=== PATIENT | female | born 1940 | race Hispanic/Latino ===

== ENCOUNTER 2017-04-10 11:25 | Day surgery (SDC) | payer OTHER ==
--- NOTE | 2017-04-04 10:34 | HP ---
HISTORY OF PRESENT ILLNESS: Emilie Price is a 76-year-old female dialyzes in [facility] am at 0745 Sunday, , and Sunday. She is followed by Dr. Maya. She had a hemodialysis cat heter placed on 05/2016. She needs more prominent access. Vein mapping obtained. Contrast venograp hy at the interventional Center reveals patent veins, but size is not known. Her veins seem to be grijalva perior in her right arm. Plan is for right arm primary fistula as an outpatient under regional anest hesia and sedation, IV access, blood draws can be obtained through her from her dialysis catheter. R isks and benefits explained. She consents. Patient hospitalized recently [facility] for dyspnea and had been on dialysis at that time for about three months. PAST MEDICAL HISTORY: End-stage renal disease on hemodialysis, hypertension, and dyslipidemia. ALLERGIES: None. PAST SURGICAL HISTORY: Right IJ cuffed tunnel dialysis catheter for end-stage renal disease. MEDICATIONS: Metoprolol 25 mg twice a day, simvastatin 10 mg daily, isosorbide 20 mg daily, Calcarb 600 mg t.i.d., amlodipine 5 mg a day, Ecotrin 81 mg a day, Ranjana-Jt once a day, and Protonix 40 mg a day. REVIEW OF SYSTEMS: Ten -point noncontributory. PHYSICAL EXAMINATION: VITAL SIGNS: 196/69, 69, 97.5 degrees. HEENT: Unremarkable. LUNGS: Clear to auscultation. CARDIAC: Regular rate and rhythm without murmur or gallop. ABDOMEN: Soft, nontender. EXTREMITIES: Unremarkable, hemodialysis catheter IJ present. Palpable radial pulses bilaterally. B lita veins are right antecubital than the left visibly. ASSESSMENT AND PLAN: End-stage renal disease and need of more permanent dialysis access. We will pl an placement of a primary fistula right arm regional anesthesia TIVA, IV access, blood draws through her dialysis catheter. Vein mapping ultrasound Doppler, venography left upper extremity 10/2016 from [facility] reveals patent veins, but sizes not reported. Left upper extremity ve ins patent, other veins not assessed. Plan right arm primary fistula as the veins visibly prudently better and are superior on the right than left. Patient understands the risks and benefits, infectio n, bleeding, reoperation, ischemic hand, possible revision, surgical thrombosis, possible new placeme nt and consents.
[~2017-04-10 11:25] MED LIST: Bupivacaine HCl 0.5%/Epinephrine 1:200,000/PF 30 ml Vial ONE; Bupivacaine PF 0.5% 30 ML VIAL ONE
[2017-04-10 12:08] LABS: #Eosinphils 0.2 thou/uL (0.0-0.7); #Lymphocytes 1.5 thou/uL (1.20-3.40); #Monocytes 0.4 thou/uL (0.11-0.59); #Neutrophils 3.7 thou/uL (1.40-6.50); %Basophils 0.1 % (0.0-1.0); %Eosinophils 4.2 % (0.0-10.0); %Neutrophils 63.8 % (42.0-75.0); Hemoglobin 11.2 g/dL (12.0-16.0); Mean Corpuscular HGB CONC 33.4 g/dL (32.0-36.0); Mean Platelet Volume 9.7 fL (7.4-10.4); Platelet Count 119 thou/uL (130-400); Red Blood Cell (RBC) Count 3.28 mill/uL (4.20-5.40); White Blood Cell (WBC) Count 5.8 thou/uL (4.8-10.8)
[2017-04-10] MEDS ORDERED: CEFAZOLIN/Water 2 GM/20 ML SYRINGE ONE (12:12)
[2017-04-10] MEDS ORDERED: Fentanyl 100 MCG/2 ML VIAL ONE ×2 (12:18→12:28)
[2017-04-10 12:24] LABS: Anion Gap 13 mmol/L (10-20); BUN (Urea Nitrogen) 30 mg/dL (9.8-20.1); Calc. Creatinine Clearance 0 mL/min (70-130); Calcium 9.7 mg/dL (7.8-10.44); Carbon Dioxide 30 mmol/L (23-31); Chloride 103 mmol/L (98-107); Estimated GFR-MDRD 7; Glucose 101 mg/dL (83-110); Potassium 4.1 mmol/L (3.5-5.1); Sodium 142 mmol/L (136-145)
[2017-04-10] MEDS ORDERED: Lidocaine 1% w/Epinephrine 1:200K 30 ML VIAL ONE (12:26)
[2017-04-10] MEDS ORDERED: Heparin 5,000 UNITS/ML VIAL ONE (12:26)
[2017-04-10] MEDS ORDERED: Bupivacaine 0.5% 10 ML VIAL ONE (12:26)
[2017-04-10] MEDS ORDERED: Protamine Sulfate 50 MG/5 ML VIAL ONE (12:26)
[2017-04-10] MEDS ORDERED: Midazolam HCl 2 mg/2 ml Vial ONE (12:28)
[2017-04-10] MEDS ORDERED: Propofol 500 MG/50 ML VIAL ONE (12:43)
--- NOTE | 2017-04-10 16:05 | EKG ---
Test Reason : PREOP Blood Pressure : / mmHG Vent. Rate : 075 BPM Atrial Rate : 075 BPM P-R Int : 128 ms QRS Dur : 078 ms QT Int : 424 ms P-R-T Axes : 077 030 048 degrees QTc Int : 473 ms Normal sinus rhythm Inferior infarct , age undetermined cannot be excluded Abnormal ECG Confirmed by PEDRO LEE ([id number]) on 04/10/2017 4:05:21 PM Referred By: CHIP Confirmed By:PEDRO LEE
[2017-04-10] MEDS ORDERED: PHENYLEPHRINE-NS 100 MCG/ML 10 ML SYRINGE ONE (16:23)
[2017-04-10] MEDS ORDERED: Heparin 10,000 UNITS/ 10 ML VIAL ONE ×2 (16:23→16:44)
[2017-04-10] MEDS ORDERED: Ondansetron HCl/PF 4 MG/2 ML Vial ONE (16:23)
--- NOTE | 2017-04-10 17:46 | OP ---
DATE OF PROCEDURE: 04/10/2017 PREOPERATIVE DIAGNOSIS: End-stage renal disease. POSTOPERATIVE DIAGNOSIS: End-stage renal disease. PROCEDURES PERFORMED: Right arm primary AV fistula, perforating branch antecubital vein to the proxi mal radial artery, outflow cephalic vein only, retrograde antecubital vein preserved, 3.5 mm coronary dilator passed unrestricted out the cephalic vein outflow. Note, patient had preoperative venous ma pping at [facility] contrast venography that did not provide good information, but did verify patent central circulation. Clinically, her right cephalic vein was larger than her left, and she was right handed. SURGEON: Dr. Giacomo Jesus. ANESTHESIA: Regional TIVA. PROCEDURE IN DETAIL: The patient was taken to the operating room where under regional anesthesia and intravenous sedation, right upper extremity was prepared with ChloraPrep, draped in routine fashion. A longitudinal incision was made between the proximal radial artery and antecubital vein carried do wn through the skin and subcutaneous tissue and the antecubital vein dissected free, was of good ariana melany. Outflow cephalic vein was of excellent caliber. Perforating branch antecubital vein was larger and dissected free and branches divided between 4-0 silk ties and clips, mobilized, and spatulated o nae a branch point, interrogated with coronary dilators. The patient given 6000 units of heparin int ravenously. Coronary dilators from a 2 mm to 3.5 mm passed unobstructed as far as they could reach i n the cephalic vein. Cephalic vein was dissected free distally just above the antecubital fossa and there was no branch points identified. Proximal radial artery identified, dissected free. The arter y was small and had a smaller than usual branch that probably was not the ulnar artery. The patient probably had a high bifurcation of the radial artery. After adequate heparin circulation, proximal r adial artery and branches clamped with atraumatic vascular clamps and longitudinal arteriotomy made s harply and elongated sharply and end perforating branch of the antecubital vein to the side proximal radial artery anastomosis completed with continuous suture of 6-0 Prolene. The patient was given 25 mg of protamine intravenously. Doppler interrogation of the cephalic vein outflow revealed a good si gnal. Good hemostasis noted and obtained with 6-0 Prolene, Surgicel applied with 25 mg of protamine administered by Anesthesia intravenously. Good hemostasis noted. Subcutaneous tissues approximated with 3-0 Monocryl, skin with subdermal 4-0 Monocryl and DermaGlue applied.
== END 2017-04-10 17:08 | disposition home or self-care (01) ==
LOC: SDC 11:25
PROVIDERS: ATTEND Specialist
PROC: 031B0ZF Bypass Right Radial Artery to Lower Arm Vein, Open Approach (ICD-10-PCS; principal; 2017-04-10)
DX: I12.0 Hypertensive chronic kidney disease with stage 5 chronic kidney disease or end stage renal disease (principal); N18.6 End stage renal disease; E78.5 Hyperlipidemia, unspecified; Z99.2 Dependence on renal dialysis; Z79.82 Long term (current) use of aspirin; Z79.899 Other long term (current) drug therapy; Z98.51 Tubal ligation status; Z98.890 Other specified postprocedural states
CPT/HCPCS: 36415; 80048; 85025; 93005; 93010; J0670; J1644; J2250; J2405; J2704; J2720; J3010; J3490; S0020

== ENCOUNTER 2017-07-19 19:30 | Emergency (ER) | payer OTHER ==
[2017-07-19 20:10] LABS: Bilirubin Negative (Negative); Blood, Urine Small (Negative); Clarity CLOUDY (Clear); Glucose, Urine (Dipstick) Negative (Negative); Leukocyte Small (Negative); Nitrite Negative (Negative); Protein, Urine (Dipstick) 300 mg/dL (Neg-Trace); Specific Gravity, Urine 1.011 (1.002-1.036); Urobilinogen 0.2 mg/dL (0.2-1.0); pH, Urine 7.5 (5.0-9.0)
[2017-07-19 20:13] LABS: Bacteria/HPF None Seen HPF (None Seen)
[2017-07-19 20:15] LABS: Pathc Cast-AUWi Flag 3.34 (0-2.49)
[2017-07-19 20:16] LABS: #Eosinphils 0.3 thou/uL (0.0-0.7); #Lymphocytes 1.3 thou/uL (1.20-3.40); #Monocytes 0.4 thou/uL (0.11-0.59); #Neutrophils 4.1 thou/uL (1.40-6.50); %Basophils 0.3 % (0.0-1.0); %Eosinophils 5.2 % (0.0-10.0); %Lymphocytes 21.1 % (21.0-51.0); %Monocytes 7.1 % (0.0-10.0); %Neutrophils 66.3 % (42.0-75.0); Mean Corpuscular HGB CONC 33.8 g/dL (32.0-36.0); Mean Corpuscular Hemoglobin 34.9 pg (27.0-31.0); Mean Platelet Volume 8.4 fL (7.4-10.4); Platelet Count 192 thou/uL (130-400); RBC Distribution Width 12.3 % (11.5-14.5); Red Blood Cell (RBC) Count 2.86 mill/uL (4.20-5.40); White Blood Cell (WBC) Count 6.2 thou/uL (4.8-10.8)
[2017-07-19 20:23] LABS: Hyaline Casts/LPF 0-3 HYALINE CAST LPF (0-3 Hyaline)
[2017-07-19 20:24] LABS: Other Casts/LPF 0-3 COARSE GRAN LPF (0-3 Hyaline); Renal Epithelial None Seen HPF (0-3); Transitional Epithelial NONE SEEN HPF (0-3)
[2017-07-19 20:42] LABS: ALT (SGPT) 23 U/L (8-55); AST (SGOT) 18 U/L (5-34); Albumin 3.7 g/dL (3.4-4.8); Alkaline Phosphatase 187 U/L (40-150); Anion Gap 14 mmol/L (10-20); BUN (Urea Nitrogen) 21 mg/dL (9.8-20.1); Bilirubin, Total 0.4 mg/dL (0.2-1.2); Calc. Creatinine Clearance 0 mL/min (70-130); Calcium 9.7 mg/dL (7.8-10.44); Carbon Dioxide 30 mmol/L (23-31); Chloride 98 mmol/L (98-107); Estimated GFR-MDRD 8; Globulin 3.8 g/dL (2.4-3.5); Glucose 100 mg/dL (83-110); Lipase 25 U/L (8-78); Potassium 4.7 mmol/L (3.5-5.1); Protein, Total 7.5 g/dL (6.0-8.3); Sodium 137 mmol/L (136-145)
== END 2017-07-19 20:58 | disposition home or self-care (01) ==
LOC: ERS 19:30
DX: N39.0 Urinary tract infection, site not specified (principal); K21.9 Gastro-esophageal reflux disease without esophagitis; I10 Essential (primary) hypertension; Z79.82 Long term (current) use of aspirin; Z79.891 Long term (current) use of opiate analgesic; Z79.899 Other long term (current) drug therapy
CPT/HCPCS: 36415; 80053; 81003; 81015; 83690; 85025; 99284

== ENCOUNTER 2018-04-02 15:52 | Outpatient (CLI) | payer OTHER ==
--- NOTE | 2018-04-02 16:35 | RAD ---
TWO VIEWS LUMBAR SPINE: 04/02/18 HISTORY: Pain. COMPARISON: None. FINDINGS: Diffuse bone demineralization. Chronic moderate compression fracture at L1. Preservation of vertebral body heights from L3 through L5. Sclerosis on the superior end plate of L2 which may represent a mil d compression deformity. Limited evaluation of the distal thoracic spine. IMPRESSION: Compression deformity at L1 and L2. POS: [facility]
== END 2018-04-02 15:53 | disposition home or self-care (01) ==
LOC: TBSIIMAG 15:52
PROVIDERS: ATTEND Neurological Surgery
DX: M54.5 Low back pain (principal); M43.9 Deforming dorsopathy, unspecified
CPT/HCPCS: 72100

== ENCOUNTER 2018-04-23 14:08 | Outpatient (CLI) | payer OTHER ==
--- NOTE | 2018-04-23 15:32 | RAD ---
LUMBAR SPINE 2 VIEWS: HISTORY: M54.5, lumbar pain. COMPARISON: Radiograph 04/02/2018. FINDINGS: The compression fracture at L1 has some mildly progressive greater than 60% anterior height loss. Th ere appears to be a possibly some low-grade retropulsion. L2 superior end plate compression fracture is similar. No new acute superimposed fracture or malalignment. Dense calcifications of the aorta. IMPRESSION: 1. Progressive height loss of L1 vertebral body with retropulsion and approximately 80% anterior hei ght loss. 2. Similar superior end plate height loss of L2. POS: [facility]
== END 2018-04-23 14:09 | disposition home or self-care (01) ==
LOC: TBSIIMAG 14:08
PROVIDERS: ATTEND Neurological Surgery
DX: M48.56XA Collapsed vertebra, not elsewhere classified, lumbar region, initial encounter for fracture (principal); M48.8X6 Other specified spondylopathies, lumbar region
CPT/HCPCS: 72100

== ENCOUNTER 2018-08-27 15:36 | Outpatient (CLI) | payer OTHER ==
--- NOTE | 2018-08-27 15:55 | RAD ---
Exam: 2 views lumbar spine COMPARISON: 04/23/2018 HISTORY: compression fracture. Back pain FINDINGS: Stable severe loss of vertebral height at L1. Acute fractures are not appreciated. There is diffuse bone demineralization. Joint spaces are preserved. There is atherosclerosis of the aorta IMPRESSION: Stable severe compression fracture at L1
== END 2018-08-27 15:37 | disposition home or self-care (01) ==
LOC: TBSIIMAG 15:36
PROVIDERS: ATTEND Neurological Surgery
DX: S32.019D Unspecified fracture of first lumbar vertebra, subsequent encounter for fracture with routine healing (principal)
CPT/HCPCS: 72100